=== PATIENT | female | born 1980 | race Caucasian/White ===

== ENCOUNTER 2023-04-28 16:07 | Outpatient (REF) | payer MEDICAID, SELFPAY ==
[2023-04-28 18:24] LABS: TSH reflex Free T4 3.52 uIU/mL (0.32-4.0)
== END 2023-04-28 16:08 | disposition home or self-care (01) ==
LOC: HO.CHCLDS 16:07
PROVIDERS: Visit Provider Internal Medicine
DX: R79.89 Other specified abnormal findings of blood chemistry (principal)
CPT/HCPCS: 36415; 82306; 84443

== ENCOUNTER 2023-11-10 14:06 | Outpatient (REF) | payer MEDICAID, SELFPAY ==
[2023-11-10 14:40] LABS: MANUAL DIFF FLAG NO
[2023-11-10 14:50] LABS: Basophils Absolute Auto 0.1 X10*3/uL (0.0-0.2); Eosinophils Absolute Auto 0.1 X10*3/uL (0.0-0.4); Hemoglobin 8.5 g/dl (12.0-16.0); Imm Gran Abs Auto 0.09 X10*3/uL (0.00-0.03); Lymphocytes Absolute Auto 2.3 X10*3/uL (1.2-4.9); Lymphocytes Percent Auto 26.1 % (20-40); Mean Corpuscular HGB Conc 30.4 g/dl (31.0-35.0); Mean Corpuscular Hemoglobin 24.1 pg (27.0-33.0); Mean Corpuscular Volume 79.5 fL (80.0-98.0); Mean Platelet Volume 11.3 fL (9.4-12.3); Monocytes Absolute Auto 0.7 X10*3/uL (0.1-1.2); Monocytes Percent Auto 7.6 % (2-11); Neutrophils Absolute Auto 5.6 x10*3/uL (2.0-8.3); Neutrophils Percent Auto 63.3 % (45-73); Platelet Count 312 X10*3/uL (160-400); Red Blood Count 3.52 X10*6/uL (4.20-5.50); Red Cell Distribution Width 18.1 % (11.0-16.0); White Blood Count 8.9 X10*3/uL (4.8-10.8)
[2023-11-10 15:43] LABS: Folate 14.2 ng/mL (> or = 4.0); Vitamin B12 888 pg/mL (200-900)
[2023-11-28 16:32] LABS: Vitamin B1 92
== END 2023-11-10 14:07 | disposition home or self-care (01) ==
LOC: HO.CHCLDS 14:06
PROVIDERS: Visit Provider Internal Medicine
DX: R14.0 Abdominal distension (gaseous) (principal); N92.1 Excessive and frequent menstruation with irregular cycle
CPT/HCPCS: 36415; 82607; 82746; 84425; 84439; 84443; 85025

== ENCOUNTER 2023-11-24 12:40 | Outpatient (REF) | payer MEDICAID, SELFPAY ==
--- NOTE | ~2023-11-24 | US_ITS ---
EXAMINATION: US PELVIS CLINICAL INFORMATION: Heavy menstrual bleeding. COMPARISON: None available. TECHNIQUE: Ultrasound of the pelvis is performed using both transabdominal and transvaginal transducers along with Doppler. Transvaginal imaging is performed due to inadequate visualization transabdominally. FINDINGS: UTERUS: The uterus is anteverted and quite enlarged, measuring 17.0 x 10.6 x 14.8 cm for a volume of 1369 mL. The endometrium could not be visualized. A huge fibroid is present centrally measuring 12.8 x 9.9 x 14.0 cm. A smaller mural fibroid is noted in a subserosal location measuring 2.1 x 0.7 x 1.2 cm. ADNEXA: Both ovaries are visualized. There is normal color flow to the adnexa. There is no ovarian torsion. There is no pelvic ascites or fluid collection. Right ovary measures 3.4 x 1.8 x 3.2 cm for a volume of 10.2 mL. Left ovary measures 3.5 x 2.1 x 2.7 cm for a volume of 10.4 mL. US/US pelvic complete IMPRESSION: Enlarged uterus with a huge central mass measuring 14 cm in greatest dimension. Likely diagnosis is a uterine fibroid. Electronically signed by: Derek Mao MD 11/30/2023 05:05 PM EDT
== END 2023-11-24 12:41 | disposition home or self-care (01) ==
LOC: HO.US 12:40
PROVIDERS: PCP Internal Medicine; Visit Provider Internal Medicine
DX: N92.1 Excessive and frequent menstruation with irregular cycle (principal)
CPT/HCPCS: 76856

== ENCOUNTER 2024-03-06 13:35 | Outpatient (REF) | payer MEDICAID, SELFPAY ==
--- NOTE | ~2024-03-06 | US_ITS ---
CLINICAL HISTORY: arm pain, tendernes, redness LT AC fossa x 2 wks s p IV for MRI Venous duplex ultrasound left upper extremity Comparison: None Findings: Accessible deep venous segments are fully compressible with normal Doppler color flow and spectral tracings. IMPRESSION: 1. Negative for left upper extremity deep vein thrombosis. This document has been electronically signed by: Bari Gaviria MD on 03/06/2024 15:03:37
== END 2024-03-06 13:36 | disposition home or self-care (01) ==
LOC: HO.US 13:35
PROVIDERS: PCP Internal Medicine; Visit Provider Emergency Medicine
DX: M79.602 Pain in left arm (principal)
CPT/HCPCS: 93971

== ENCOUNTER → 2024-03-06 14:11 | Outpatient (BNV) | payer MEDICAID, SELFPAY | PROVIDERS: PCP Internal Medicine; Visit Provider Nuclear Medicine | DX: M79.602 Pain in left arm (principal) | CPT/HCPCS: 93971 ==

== ENCOUNTER 2024-05-31 11:17 | Outpatient (REF) | payer MEDICAID, SELFPAY ==
[2024-05-31 14:05] LABS: MANUAL DIFF FLAG NO
[2024-05-31 14:16] LABS: Basophils Absolute Auto 0.1 X10*3/uL (0.0-0.2); Basophils Percent Auto 1.3 % (0-2); Eosinophils Percent Auto 0.7 % (0-4); Hematocrit 40.3 % (37.0-47.0); Hemoglobin 12.9 g/dl (12.0-16.0); Imm Gran Abs Auto 0.02 X10*3/uL (0.00-0.03); Imm Gran Pct Auto 0.3 % (0.0-0.4); Lymphocytes Absolute Auto 1.8 X10*3/uL (1.2-4.9); Lymphocytes Percent Auto 29.4 % (20-40); Mean Corpuscular Hemoglobin 29.6 pg (27.0-33.0); Mean Corpuscular Volume 92.4 fL (80.0-98.0); Mean Platelet Volume 11.3 fL (9.4-12.3); Monocytes Absolute Auto 0.4 X10*3/uL (0.1-1.2); Monocytes Percent Auto 6.7 % (2-11); Neutrophils Absolute Auto 3.7 x10*3/uL (2.0-8.3); Neutrophils Percent Auto 61.6 % (45-73); Platelet Count 324 X10*3/uL (160-400); Red Blood Count 4.36 X10*6/uL (4.20-5.50); Red Cell Distribution Width 14.1 % (11.0-16.0)
[2024-05-31 14:28] LABS: Anion Gap 11 (12-20); Blood Urea Nitrogen 16 mg/dL (9-16); C Reactive Protein < 0.10 mg/dL (< or = 0.50); Calcium 9.8 mg/dL (8.4-10.2); Carbon Dioxide 26 mmol/L (22-29); Chloride 107 mmol/L (96-108); Estimated Glomerular Filt Rate > 60; Glucose Random 106 mg/dL (60-115); Sodium 140 mmol/L (135-145)
[2024-05-31 14:47] LABS: Ferritin 16 ng/mL (10-250); TSH reflex Free T4 17.92 uIU/mL (0.32-4.0)
[2024-05-31 15:41] LABS: Free T4 (Free Thyroxine) 0.79 ng/dL (0.71-1.85)
[2024-06-06 18:24] LABS: Thyroid Stimulating Immunoglob <89 % baseline (<140)
== END 2024-05-31 11:18 | disposition home or self-care (01) ==
LOC: HO.CHCLDS 11:17
PROVIDERS: Visit Provider Internal Medicine
DX: D50.9 Iron deficiency anemia, unspecified (principal); R79.89 Other specified abnormal findings of blood chemistry
CPT/HCPCS: 36415; 80048; 82728; 84439; 84443; 84445; 85025; 86140

== ENCOUNTER 2024-11-19 12:37 | Outpatient (REF) | payer MEDICAID, SELFPAY ==
--- OUTSIDE RECORDS SUMMARY | 2024-11-19 11:15 | XMS_ITS | Encounter Summary ---
Author Organization [employer] Address [address] [place] [phone] Care Team Providers Care Cardiology Tech Name Role Phone Mabel Alfred MD Primary Care Provider [phone] Reason for Referral * Consultation (Routine) - Authorized Specialty Diagnoses / Procedures Referred By Jaleesa abraham Referred To Contact Vascular Surgery Diagnoses Varicose veins of ankle Mabel Alfred MD [address] [place] [address] Phone: tel: fax: [facility] [address] [facility] [address] [place] [address] Phone: tel: fax: Referral ID Status Reason Start Date Expiration Date Visits Requested Visits Authorized [id number] Authorized Specialty Services Required 11/19/2024 11/19/2025 1 1 Encounter Details Date Type Department Care Team (Latest Contact Info) Description 11/19/2024 11:15 AM EDT Office Visit [facility] [address] [place], [place] [phone] Mabel Alfred MD [address] [place] [phone] Elevated TSH (Primary Dx); Edema, lower extremity; Microcytic anemia; Varicose veins of ankle; Intramural uterine fibroid; Weight loss, unintentional Social History Tobacco Use Types Packs/Day Years Used Date Smoking Tobacco: Never Passive Smoke Exposure: Never Smokeless Tobacco: Never Alcohol Use Standard Drinks/Week Comments Never 0 (1 standard drink = 0.6 oz pur e alcohol) Depression Answer Date Recorded Patient Health Questionnaire-9 Score 7 05/31/2024 Patient Health Questionnaire-9 Score 7 05/31/2024 Last PHQ-9: Questionnaire Data Not on file 0 05/31/2024 Housing Stability Answer Date Recorded What is your housing situation today? I have rafael mcduffie 05/31/[address] you li ve. Do you have problems with any of the following? No or not working smoke detectors 05/31/2024 Food Insecurity Answer Date Recorded Within the past 12 months, y ou worried that your food would run out before you got money to buy more: Never True 05/31/2024 Within the past 12 months,th e food you bought just didn't last and you didn't have enough money to get more: Never True Transportation Answer Date Recorded In the past 12 months, has l ack of transportation kept you from medical appts, meetings, work or from getting things needed for daily living? No 05/31/2024 Utilities Answer Date Recorded In the past 12 months, has t he electric, gas, oil or water company threatened to shut off services in your home? No 05/31/2024 Depression Answer Date Recorded Patient Health Questionnaire-2 Score 0 05/31/2024 Internet Access Answer Date Recorded Internet Access Q1 Yes 05/31/2024 Internet Access Q2 Not on file 05/31/2024 Comments Unknown Sex and Gender Information Value Date Recorded Sex Assigned at Female 01/04/2022 10:24 AM EDT Legal Sex Female 10:24 AM EDT Gender Identity Female 01/04/2022 10:24 AM EDT Sexual Orientation Choose not to disclose 2021 10:24 AM EDT documented as of this encounter Last Filed Vital Signs Vital Sign Reading Time Taken Comments Blood Pressure 125/79 11/19/2024 11:28 AM EDT Pulse 73 11/19/2024 11:28 AM EDT Temperature 36.6 C (97.9 F) 11/19/2024 11:28 AM EDT Respiratory Rate 20 11/19/2024 11:28 AM EDT Oxygen Saturation 99% 11/19/2024 11:28 AM EDT Inhaled Oxygen Concentration - - Weight 50.3 kg (111 lb) 11/19/2024 11:28 AM EDT Height 154.9 cm (5' 1 ) 11/19/2024 11:28 AM EDT Body Mass Index 20.97 11/19/2024 11:28 AM EDT documented in this encounter Progress Notes * Mabel Alfred MD - 11/19/2024 11:15 AM EDT DEZ Rey is a 44 y.o. female who presents for No chief complaint on file.. HPI Note from triage reviewed: Triage call Pt reports bilateral upper and lower extremity pain. Pt reports the veins are painful to touch and there are spider like veins seen now under the skin. Pt reports this all started whenPt became more active for a few days, developed some edema of lower extremities and then began to have pain along the veins. Pt reports when the edema resolved the spider veins were seen. Pt denies redness, swelling or painful lump along veins. Pt is wondering if the fibroid in the uterus could be causing this problem. Pt does have an apt with [facility] [facility] in December. Pt has reduced activity and feels better when legs are up while sitting during the day. Pt is also asking if thyroid lab ordered in may is still active order. Pt is advised the TSH lab is still active and Pt will come in todo that in a day or two. No available apts for [facility] in [facility] and Pt would like to see PCP. Pt is advised creative services writer will forward this request to [facility] team nurses to obtain an apt. Pt is advised if any worsening of symptoms go to closest ED for evaluation and Pt agrees. Pt agrees with this disposition and portia n. Insurance is verified as active through November. Was having edema of the lower limbs about a month ago. Now c/o pain of b/l feet since last week. The pain is intermittent, exacerbated by walking and worse at nightime. Never had similar symptoms in the past. Pt is also c/o b/l intermittent wrist pain and arm pain Mrs. Sharon Rey is concerned about having a vasculitis and would like to get a workup done for that. Denies any fever or joint pains. Problem List[1] Allergies[2] Medications Ordered Prior to Encounter[3] Review of Systems Constitutional: Negative for appetite change, chills and diaphoresis. OBJECTIVE Vitals: 11/19/24 1128 BP: 125/79 BP Location: Left arm Patient Position: Sitting BP Cuff Size: Adult Pulse: 73 Resp: 20 Temp: 97.9 ??F (36.6 ??C) TempSrc: Oral SpO2: 99% Weight: 111 lb (50.3 kg) Height: 5' 1 (1.549 m) Physical Exam Constitutional: General: She is not in acute distress. Appearance: Normal appearance. She is not ill-appearing, toxic-appearing or diaphoretic. Cardiovascular: Rate and Rhythm: Normal rate. Comments: Mildly dilated varicose veins of the lower limbs. Pulmonary: Effort: Pulmonary effort is normal. Musculoskeletal: Right lower le+ Edema present. Left lower le+ Edema present. Neurological: Mental Status: She is alert. Assessment/Plan Assessment/Plan Diagnoses and all orders for this visit: Elevated TSH - CBC auto differential; Future - Comprehensive Metabolic Panel; Future - Lipid Panel, Standard; Future - TSH with Reflex to Free T4; Future - JAMES Screen,IFA, with Reflex to Titer and Pattern; Future - Sed Rate by Modified Westergren; Future - C-reactive Protein; Future Edema, lower extremity Comments: Possible venous insufficiency Leg elevation Compression stockings Orders: - CBC auto differential; Future - Comprehensive Metabolic Panel; Future - Lipid Panel, Standard; Future - TSH with Reflex to Free T4; Future - JAMES Screen,IFA, with Reflex to Titer and Pattern; Future - Sed Rate by Modified Westergren; Future - C-reactive Protein; Future Microcytic anemia Comments: Labs ordered. Patient will be contacted with results. Iron supplement refilled. Orders: - Ferritin; Future Varicose veins of ankle - Referral to Vascular Surgery; Future Intramural uterine fibroid Comments: Has a scheduled appointment with gynecology in 2 to 3 weeks. Orders: - ferrous sulfate (Fe Tabs) 325 (65 Fe) MG EC tablet; Take 1 tablet (325 mg) by mouth with breakfast. Do not crush, chew, or split. Weight loss, unintentional Patient should increase calorie dense food in her diet. [1] Patient Active Problem List Diagnosis Brain concussion Gastritis Acute pain of right knee Intramural uterine fibroid [2] Allergies Allergen Reactions Omeprazole Other reaction(s): Hives, Trouble Breathing Sucralfate Other reaction(s): Hives, Trouble Breathing Latex Other reaction(s): Hives / Skin Rash [3] Current Outpatient Medications on File Prior to Visit Medication Sig Dispense Refill Cholecalciferol (Vitamin D3) 1000 units capsule Take 25 mcg by mouth. Diclofenac Sodium 1 % gel APPLY TOPICALLY IN THE MORNING, AT NOON, IN THE EVENING, AND AT BEDTIME NEEDED FOR PAIN 200 g 1 ferrous sulfate (Fe Tabs) 325 (65 Fe) MG EC tablet Take 1 tablet (325 mg) by mouth with breakfast. Do not crush, chew, or split. 30 tablet 11 levothyroxine (Synthroid) 50 MCG tablet Take 1 tablet (50 mcg) by mouth before breakfast. 30 [id number] No current facility-administered medications on file prior to visit. documented in this encounter Plan of Treatment Scheduled Orders Name Type Priority Associated Diagnoses Orde r Schedule JAMES Screen,IFA, with Reflex to Titer and Pattern Lab Routine Elevated TSH Edema, lower extremity Expected: 11/19/2024 (Approximate), Expires: 11/19/2025 Scheduled Referrals Name Type Priority Associated Diagnoses Orde r Schedule Referral to Vascular Surgery Outpatient Referral Routine Varicose veins of ankle Expected: 11/19/2024 (Approximate), Expires: 11/19/2025 documented as of this encounter Procedures Procedure Name Priority Date/Time Associated Diagnosis Comments CBC WITH AUTO DIFFERENTIAL Routine 11/19/2024 12:39 PM EDT Elevated TSH Edema, lower extremity SED RATE BY MODIFIED WESTERGREN Routine 11/19/2024 12:39 PM EDT Elevated TSH Edema, lower extremity TSH W/REFLEX TO FT4 Routine 11/19/2024 1 2:35 PM EDT Elevated TSH Edema, lower extremity C-REACTIVE PROTEIN Routine 11/19/2024 12 :35 PM EDT Elevated TSH Edema, lower extremity FERRITIN Routine 11/19/2024 12:35 PM EDT Microcytic anemia LIPID PANEL, STANDARD Routine 11/19/2024 12:35 PM EDT Elevated TSH Edema, lower extremity COMPREHENSIVE METABOLIC PANEL Routine 11/19/2024 12:35 PM EDT Elevated TSH Edema, lower extremity documented in this encounter Results * Sed Rate by Modified Jaelren (11/19/2024 12:39 PM EDT) Pathologist [facility] Erythrocyte Sedimentation Rate 6 0 - 20 MM/HR [facility] Comment:Patients with polycy themia and many hemoglobin abnormalitiesmay have depressed sed rates whereas patients with anemiamay have elevated sed rates. Blood Venous blood specimen / Unknown 11/19/2024 12:39 PM EDT 11/19/2024 2:00 PM EDT us Mabel Alfred MD LAB BLOOD ORDERABLES Final Result [facility] [address] [place] [phone] * (ABNORMAL) CBC auto differential (11/19/2024 12:39 PM EDT) Pathologist [facility] White Blood Count 4.7(L) 4.8 - 10.8 X10*3/uL [facility] Red Blood Count 4.31 4.20 - 5.50 X10*6/uL [facility] Hemoglobin 12.7 12.0 - 16.0 g/dl [facility] Hematocrit 39.1 37.0 - 47.0 % [facility] Mean Corpuscular Volume 90.7 80.0 - 98.0 fL [facility] Mean Corpuscular Hemoglobin 29.5 27.0 - 33.0 pg [facility] Mean Corpuscular HGB Conc 32.5 31.0 - 35.0 g/dl [facility] Red Cell Distribution Width 12.8 11.0 - 16.0 % [facility] Platelet Count 261 160 - 400 X10*3/uL [facility] Mean Platelet Volume 11.5 9.4 - 12.3 fL [facility] Neutrophils Percent Auto 53.1 45 - 73 % [facility] Imm Gran Pct Auto 0.2 0.0 - 0.4 % [facility] Lymphocytes Percent Auto 35.4 20 - 40 % [facility] Monocytes Percent Auto 8.1 2 - 11 % [facility] Eosinophils Percent Auto 1.7 0 - 4 % [facility] Basophils Percent Auto 1.5 0 - 2 % [facility] NRBC Pct Auto 0.0 0.0 - 0.2 /100WBC [facility] Neutrophils Absolute Auto 2.5 2.0 - 8.3 x10*3/uL [facility] Imm Gran Abs Auto 0.01 0.00 - 0.03 X10*3/uL [facility] Lymphocytes Absolute Auto 1.7 1.2 - 4.9 X10*3/uL [facility] Monocytes Absolute Auto 0.4 0.1 - 1.2 X10*3/uL [facility] Eosinophils Absolute Auto 0.1 0.0 - 0.4 X10*3/uL [facility] Basophils Absolute Auto 0.1 0.0 - 0.2 X10*3/uL [facility] NRBC Abs Auto 0.000 0.0 - 0.012 X10*3/uL [facility] Blood Venous blood specimen / Unknown 11/19/2024 12:39 PM EDT 11/19/2024 2:00 PM EDT us Mabel Alfred MD LAB BLOOD ORDERABLES Final Result [facility] [address] [place], [place] [phone] * Ferritin (11/19/2024 12:35 PM EDT) Ferritin 25 10 - 250 ng/mL [facility] Blood Venous blood specimen / Unknown 11/19/2024 12:35 PM EDT 11/19/2024 2:00 PM EDT us Mabel Alfred MD LAB BLOOD ORDERABLES Final Result Performing Organization Address [facility] Co ak Phone Number [facility] [address] [place] [phone] * C-reactive Protein (11/19/2024 12:35 PM EDT) C Reactive Protein 0.14 < or = 0.50 mg/dL [facility] Blood Venous blood specimen / Unknown 11/19/2024 12:35 PM EDT 11/19/2024 2:00 PM EDT us Mabel Alfred MD LAB BLOOD ORDERABLES Final Result Performing Organization Address [facility] Number [facility] [address] [place] [phone] * (ABNORMAL) TSH with Reflex to Free T4 (11/19/2024 12:35 PM EDT) TSH reflex Free T4 7.36(H) 0.32 - 4.0 uIU/mL [facility] Blood Venous blood specimen / Unknown 11/19/2024 12:35 PM EDT 11/19/2024 2:00 PM EDT us Mabel Alfred MD LAB BLOOD ORDERABLES Final Result Performing Organization Address [facility] Co ak Phone Number [facility] [address] [place] [phone] * (ABNORMAL) Lipid Panel, Standard (11/19/2024 12:35 PM EDT) Triglycerides 56 <150 mg/dL [facility] Comment:Desirable Triglyceri de: less than 150 mg/dLBorderline High Triglyceride 150-199 mg/dLHigh Triglyceride: 200-499 mg/dLVery High Triglyceride: greater than or equal to 5OO mg/dL Cholesterol 178 <200 mg/dL [facility] Comment:Desirable Cholestero l: less than 200 mg/dLBorderline High Cholesterol: 200-239 mg/dLHigh Cholesterol: greater than 239 mg/dL LDL Cholesterol Calculated 102(H) <100 mg/dL [facility] Comment:Desirable LDL: less than 100 mg/dLNear Optimal/Above Optimal LDL: 110- 129 mg/dLBorderline High LDL: 130-159 mg/dLHigh LDL: 160-189 mg/dLVery High LDL: greater than or equal to 190 mg/dL HDL Cholesterol 65 >40 mg/dL [facility] Comment:Desirable HDL: great er than 40 mg/dL Note: This HDL assay may give artificially low results in patients with liver disease. Blood Venous blood specimen / Unknown 11/19/2024 12:35 PM EDT 11/19/2024 2:00 PM EDT us Mabel Alfred MD LAB BLOOD ORDERABLES Final Result [facility] [address] [place] [phone] * (ABNORMAL) Comprehensive Metabolic Panel (11/19/2024 12:35 PM EDT) Sodium 140 135 - 145 mmol/L [facility] Potassium 4.0 3.3 - 5.1 mmol/L [facility] Chloride 106 96 - 108 mmol/L [facility] Carbon Dioxide 26 22 - 29 mmol/L [facility] Anion Gap 12 12 - 20 [facility] Urea Nitrogen (BUN) 4(L) 9 - 16 mg/dL [facility] Creatinine, Serum 0.59 0.5 - 1.4 mg/dL [facility] Estimated Glomerular Filt Rate >60 [facility] Comment:Chronic Kidney Disea se: Estimated GFR < 60 mL/min/1.57r8Gjjged Kidney Disease: Estimated GFR < 15 mL/min/1.73m2 Glucose 101 60 - 115 mg/dL [facility] Calcium 9.7 8.4 - 10.2 mg/dL [facility] Bilirubin, Total 0.2 0.0 - 1.0 mg/dL [facility] Aspartate Amino Transferase 28 5 - 31 U/L [facility] Alanine Aminotransferase 15 0 - 31 U/L [facility] Total Protein 6.9 6.5 - 8.0 g/dL [facility] Albumin Level 4.7 3.5 - 5.0 g/dL [facility] Alkaline Phosphatase 55 39 - 117 U/L [facility] Blood Venous blood specimen / Unknown 11/19/2024 12:35 PM EDT 11/19/2024 2:00 PM EDT Mabel Alfred MD LAB BLOOD ORDERABLES Final Result [facility] [address] [place] [phone] documented in this encounter Visit Diagnoses Diagnosis Elevated TSH- Primary Other abnormal blood chemistry Edema, lower extremity Microcytic anemia Unspecified iron deficiency anemia Varicose veins of ankle Intramural uterine fibroid Weight loss, unintentional Loss of weight documented in this encounter Additional Health Concerns Assessment Noted Time PHQ-9 Depression Total Score: 7 06/01/19 25 11:07 AM EDT documented as of this encounter Care Teams Cardiology Tech Relationship Specialty Start Date End Date Mabel Alfred MD [address] [place] [phone] PCP - General Internal Medicine 12/01/20 documented as of this encounter
[2024-11-19 14:08] LABS: MANUAL DIFF FLAG NO
[2024-11-19 14:19] LABS: Hematocrit 39.1 % (37.0-47.0); Hemoglobin 12.7 g/dl (12.0-16.0); Imm Gran Abs Auto 0.01 X10*3/uL (0.00-0.03); Imm Gran Pct Auto 0.2 % (0.0-0.4); Lymphocytes Absolute Auto 1.7 X10*3/uL (1.2-4.9); Mean Corpuscular HGB Conc 32.5 g/dl (31.0-35.0); Mean Corpuscular Hemoglobin 29.5 pg (27.0-33.0); Mean Corpuscular Volume 90.7 fL (80.0-98.0); NRBC Abs Auto 0.000 X10*3/uL (0.0-0.012); NRBC Pct Auto 0.0 /100WBC (0.0-0.2); Platelet Count 261 X10*3/uL (160-400); Red Blood Count 4.31 X10*6/uL (4.20-5.50); White Blood Count 4.7 X10*3/uL (4.8-10.8)
[2024-11-19 14:35] LABS: Alanine Aminotransferase 15 U/L (0-31); Albumin Level 4.7 g/dL (3.5-5.0); Alkaline Phosphatase 55 U/L (39-117); Anion Gap 12 (12-20); Aspartate Amino Transferase 28 U/L (5-31); Blood Urea Nitrogen 4 mg/dL (9-16); Calcium 9.7 mg/dL (8.4-10.2); Carbon Dioxide 26 mmol/L (22-29); Chloride 106 mmol/L (96-108); Cholesterol 178 mg/dL (<200); Estimated Glomerular Filt Rate > 60; HDL Cholesterol 65 mg/dL (>40); Potassium 4.0 mmol/L (3.3-5.1); Sodium 140 mmol/L (135-145); Total Protein 6.9 g/dL (6.5-8.0); Triglycerides 56 mg/dL (<150)
[2024-11-19 14:50] LABS: Ferritin 25 ng/mL (10-250)
[2024-11-19 15:24] LABS: Free T4 (Free Thyroxine) 1.01 ng/dL (0.71-1.85)
--- OUTSIDE RECORDS SUMMARY | 2024-11-19 17:19 | XMS_ITS | Encounter Summary ---
Author Organization [employer] Address [address] [place] [phone] Care Team Providers Care Carpet Yarn Winder Operator Name Role Phone Mabel Alfred MD Primary Care Provider [phone] Reason for Referral * Imaging (Routine) - Closed Specialty Diagnoses / Procedures Referred By Contac t Referred To Contact Radiology Diagnoses Menorrhagia with irregular cycle Procedures US PELVIC AND TRANSVAGINAL Mabel Alfred MD [address] [place] [address] Phone: tel: fax: [address] Phone: tel: fax: Referral ID Status Reason Start Date Expiration Date Visits Re quested Visits Authorized [id number] Closed 11/16/2023 11/15/2024 1 1 Encounter Details Date Type Department Care Team (Late st Contact Info) Description 11/16/2023 Orders Only [facility] P[facility]S [address] [place] [address] Mabel Alfred MD [address] [place] [address] Menorrhagia with irregular cycle (Primary Dx) Social History Tobacco Use Types Packs/Day Years Used Date Smoking Tobacco: Never Passive Smoke Exposure: Never Smokeless Tobacco: Never Alcohol Use Standard Drinks/Week Comments Never 0 (1 standard drink = 0.6 oz pur e alcohol) Comments Unknown Sex and Gender Information Value Date Recorded Sex Assigned at Female 01/04/2022 10:24 AM EDT Legal Sex Female 10:24 AM EDT Gender Identity Female 01/04/2022 10:24 AM EDT Sexual Orientation Choose not to disclose 2021 10:24 AM EDT documented as of this encounter Plan of Treatment Scheduled Orders Name Type Priority Associated Diagnoses Orde r Schedule US PELVIC AND TRANSVAGINAL Imaging Routine Menorrhagia with irregular cycle Expected: 11/16/2023, Expires: 11/15/2024 documented as of this encounter Visit Diagnoses Diagnosis Menorrhagia with irregular cycle- Primary documented in this encounter Care Teams Carpet Yarn Winder Operator Relationship Specialty Start Date End Date Mabel Alfred MD [address] [place] [address] PCP - General Internal Medicine 12/01/20 documented as of this encounter
--- OUTSIDE RECORDS SUMMARY | 2024-11-19 17:19 | XMS_ITS | Encounter Summary ---
Author Organization [employer] Address [address] [place] [address] Care Team Providers Care Product Manager E Commerce Name Role Phone Mabel Alfred MD Primary Care Provider [phone] Reason for Referral * Consultation (Routine) - Closed Specialty Diagnoses / Procedures Referred By Contac t Referred To Contact Neurology Diagnoses Brain concussion, without loss of consciousness, subsequent encounter Mabel Alfred MD [address] [place] [phone] Phone: tel: fax: [facility] [address], [address] [place] [address] Phone: tel: fax: Referral ID Status Reason Start Date Expiration Date V isits Requested Visits Authorized [id number] Closed Specialty Services Required 06/26/2024 06/26/2025 1 1 Encounter Details Date Type Department Care Team (Late st Contact Info) Description 06/26/2024 Orders Only [facility] MED [facility] PEDS [address] [place] [address] Mabel Alfred MD [address] [place] [phone] Brain concussion, without loss of consciousness, subsequent encounter (Primary Dx) Social History Tobacco Use Types [...] of this encounter Plan of Treatment Scheduled Referrals Name Type Priority Associated Diagnoses Orde r Schedule Referral to Neurology Outpatient Referral Routine Brain concussion, without loss of consciousness, subsequent encounter Expected: 06/26/2024 (Approximate), Expires: 06/26/2025 documented as of this encounter Visit Diagnoses Diagnosis Brain concussion, without loss of consciousness, subsequent encounter- Primary documented in this encounter Additional Health Concerns Assessment Noted Time PHQ-9 Depression Total Score: 7 06/01/19 25 11:07 AM EDT documented as of this encounter Care Teams Product Manager E Commerce Relationship Specialty Start Date End Date Mabel Alfred MD [address] [place] [phone] PCP - General Internal Medicine 12/01/20 documented as of this encounter
--- OUTSIDE RECORDS SUMMARY | 2024-11-19 17:19 | XMS_ITS | Encounter Summary ---
Author Organization [employer] Address [address] [place] [address] Care Team Providers Care Operator Supply Name Role Phone Mabel Alfred MD Primary Care Provider [phone] Encounter Details Date Type Department Care Team ([facility] st Contact Info) Description 04/06/2022 Orders Only [facility] [address] [place] [address] Mabel Alfred MD [address] [place] [address] Acute pain of right knee (Primary Dx) Social History Tobacco Use Types [...] not to disclose 2021 10:24 AM EDT COVID-19 Exposure Response Date Recorded In the last 10 days, have yo u been in contact with someone who was confirmed or suspected to have Coronavirus/COVID-19? No / Unsure 04/05/2022 1:47 PM EST documented as of this encounter Plan of Treatment Scheduled Orders Name Type Priority Associated Diagnoses Orde r Schedule XR Knee 1-2 Views Left Imaging Routine Acute pain of right knee Expected: 04/06/2022, Expires: 04/06/2023 XR Knee 3 Views Right Imaging Routine Acute pain of right knee Expected: 04/06/2022, Expires: 04/06/2023 XR Knee 1-2 Views Right Imaging Routine Acute pain of right knee Expected: 04/06/2022, Expires: 04/06/2023 documented as of this encounter Visit Diagnoses Diagnosis Acute pain of right knee- Primary documented in this encounter Care Teams Operator Supply Relationship Specialty Start Date End Date Mabel Alfred MD [address] [place] [phone] PCP - General Internal Medicine 12/01/20 documented as of this encounter
--- OUTSIDE RECORDS SUMMARY | 2024-11-19 17:19 | XMS_ITS | Encounter Summary ---
Author Organization [employer] Address [address] [place] [address] [place] [address] Care Team Providers Care School Director Name Role Phone Mabel Alfred MD Primary Care Provider [phone] Encounter Details Date Type Department Care Team ([facility] st Contact Info) Description 06/01/2024 Orders Only [facility] [address] [place], [place] [phone] Mabel Alfred MD [address] [place] [address] Other specified hypothyroidism (Primary Dx) Social History Tobacco Use Types [...] your housing situation today? I have rafael sing 05/31/[address] you li [...] Type Priority Associated Diagnoses Orde r Schedule TSH W/Reflex to FT4 Lab Routine Other specified hypothyroidism Expected: 06/01/2024 (Approximate), Expires: 06/01/2025 documented as of this encounter Visit Diagnoses Diagnosis Other specified hypothyroidism- Primary documented in this encounter Additional Health Concerns Assessment Noted Time PHQ-9 Depression Total Score: 7 06/01/19 25 11:07 AM EDT documented as of this encounter Care Teams School Director Relationship Specialty Start Date End Date Mabel Alfred MD [address] [place] [phone] PCP - General Internal Medicine 12/01/20 documented as of this encounter
--- OUTSIDE RECORDS SUMMARY | 2024-11-19 17:19 | XMS_ITS | Encounter Summary ---
Author Organization [employer] Address [address] [facility] 7t [place] [address] Care Team Providers Care Cask Maker Name Role Phone Mabel Alfred MD Primary Care Provider [phone] Encounter Details Date Type Department Care Team (Latest Contact Info) Description 11/19/2024 Travel Social History Tobacco Use Types Packs/Day Years [...] is your housing situation today? I have rafaelrosio mcduffie 05/31/[address] you [...] as of this encounter Plan of Treatment Not on file documented as of this encounter Visit Diagnoses Not on filedocumented in this encounter Additional Health Concerns Assessment Noted Time PHQ-9 Depression Total Score: 7 06/01/19 25 11:07 AM EDT documented as of this encounter Care Teams Cask Maker Relationship Specialty Start Date End Date Mabel Alfred MD [address] [place] [phone] PCP - General Internal Medicine 12/01/20 documented as of this encounter
--- OUTSIDE RECORDS SUMMARY | 2024-11-19 17:19 | XMS_ITS | Clinical Summary ---
Author Organization [employer] Address [address] [place] [address] 7 [place] [address] Care Team Providers Care Fish Smoker Name Role Phone Mabel Alfred MD Primary Care Provider [phone] Allergies Active Allergy Reactions Criticality Noted Date Comments Latex 12/01/2020 Other reaction(s): Hives / Skin Rash Omeprazole High 11/12/2020 Other reaction(s): Hives, Trouble Breathing Sucralfate High 12/01/2020 Other reaction(s): Hives, Trouble Breathing Medications Cholecalciferol (Vitamin D3) 1000 units capsule Take 25 mcg by mouth. 04/28/19 24 Active Diclofenac Sodium 1 % gelIndications:Ac [place] pain of right knee APPLY TOPICALLY IN THE MORNING, AT NOON, IN THE EVENING, AND AT BEDTIME NEEDED FOR PAIN 200 g 1 06/05/19 25 Active ferrous sulfate (Fe Tabs) 325 (65 Fe) MG EC tabletIndications :Intramural uterine fibroid Take 1 tablet (325 mg) by mouth with breakfast. Do not crush, chew, or split. 30 tablet 11/20/19 25 2025 Active levothyroxine (Synthroid) 75 MCG tabletIndications :Other specified hypothyroidism Take 1 tablet (75 mcg) by mouth before breakfast. 30 tablet 11/20/19 25 2025 Active ferrous sulfate (Fe Tabs) 325 (65 Fe) MG EC tabletIndications :Intramural uterine fibroid Take 1 tablet (325 mg) by mouth with breakfast. Do not crush, chew, or split. 30 tablet 12/01/19 24 2024 Discontinued(R eorder (will not trigger notification to Pharmacy)) levothyroxine (Synthroid) 50 MCG tabletIndications :Other specified hypothyroidism Take 1 tablet (50 mcg) by mouth before breakfast. 30 tablet 11 06/02/19 25 2024 Discontinued(D ose adjustment) Active Problems Problem Noted Date Diagnosed Date Intramural uterine fibroid 05/31/2024 Gastritis 04/05/2022 Acute pain of right knee 04/05/2022 Assessment & Plan (04/05/2022 2:32 PM EST): Normal ROM, + crepitus and apprehension test ddx patellofemoral, will send to PT, X rays and topical diclofenac. Likely some bursitis component on hip examination. RTC with pcp prn Brain concussion 08/31/2018 Encounters Date Type Department Care Team Description 11/19/2024 11:15 AM EDT Office Visit [facility] [address] [place] [address] Mabel Alfred MD Elevated TSH (Primary Dx); Edema, lower extremity; Microcytic anemia; Varicose veins of ankle; Intramural uterine fibroid; Weight loss, unintentional 11/19/2024 Orders Only [facility] [address] [place] [address] Mabel Alfred MD Other specified hypothyroidism (Primary Dx) 11/19/2024 Travel 11/18/2024 Travel 11/16/2024 Telephone [facility] [address] [place] [address] Mabel Alfred MD Chart Prep 11/14/2024 Telephone [facility] [address] [place] [address] Mabel Alfred MD Nurse Triage from Last 3 Months Immunizations Immunization Administration Dates Next Due Tdap 12/15/2011 Social History Tobacco Use Types Packs/Day Years Used Date Smoking Tobacco: Never Passive Smoke Exposure: Never Smokeless Tobacco: Never Tobacco Cessation:Counseling Given: Not Answered Alcohol Use Standard Drinks/Week Comments Never 0 [...] not to disclose 2021 10:24 AM EDT Last Filed Vital Signs Vital Sign Reading [...] Mass Index 20.97 11/19/2024 11:28 AM EDT Plan of Treatment Health Maintenance Due Date Last Done Comments Dental X-Ray: Full Mouth 1982 HIV Screening 1982 Family Planning (PISQ) 1997 HPV Vaccines (1 - 3-dose series) 1997 Hepatitis C Screening 2000 Hepatitis B Vaccines (1 of 3 - 19+ 3-dose series) 2001 Pap Smear 10/27/2003 Cervical Cancer Screening 2012 HPV/Cotest 2012 DTaP/Tdap/Td Vaccines (2 - T d or Tdap) 12/14/2021 12/15/2011 Mammogram 2022 Dental Oral Exam 12/16/2022 06/15/2022 Dental X-Ray: Bitewings 06/17/2023 06/15/2022 Dental Prophylaxis 03/03/2024 09/01/2023, 06/15/2022 COVID-19 Vaccine (1 - 2023-2 5 season) 2024 Influenza Vaccine (#1) 2024 Disability Screening 05/30/2025 05/30/2024 Alcohol/Substance Use Screening 05/31/2025 05/31/2024 Depression Screening 05/31/2025 05/31/2024, 05/31/2024 SDOH Screening 05/31/2025 05/31/2024 Tobacco Screening 05/31/2025 05/31/2024 Zoster Vaccines (1 of 2) 2032 RSV Patients and Patients Aged 60 years or older (1 - 1-dose 75+ series) 2057 HIB Vaccines Aged Out No longer eligi ble based on patient's age to complete this topic Hepatitis A Vaccines Aged Out No long er eligible based on patient's age to complete this topic IPV Vaccines Aged Out No longer eligi ble based on patient's age to complete this topic Meningococcal B Vaccine Aged Out No l onger eligible based on patient's age to complete this topic Meningococcal Vaccine Aged Out No luis sincere eligible based on patient's age to complete this topic Pneumococcal Vaccine: Pediatrics (0 to 5 Years) and At-Risk Patients (6 to 49) Years Aged Out No longer eligible b ased on patient's age to complete this topic RSV under 20 months Aged Out No longe r eligible based on patient's age to complete this topic Rotavirus Vaccines Aged Out No longer eligible based on patient's age to complete this topic Procedures Procedure Name Priority Date/Time Associated Diagnosis Comments SED RATE BY MODIFIED HUSAM Routine 11/19/2024 12:39 PM EDT Elevated TSH Edema, lower extremity CBC WITH AUTO DIFFERENTIAL Routine 11/19/2024 12:39 PM EDT Elevated TSH Edema, lower extremity T4, FREE Routine 11/19/2024 12:35 PM EDT Other specified hypothyroidism FERRITIN Routine 11/19/2024 12:35 PM EDT Microcytic anemia C-REACTIVE PROTEIN Routine 11/19/2024 12 :35 PM EDT Elevated TSH Edema, lower extremity TSH W/REFLEX TO FT4 Routine 11/19/2024 1 2:35 PM EDT Elevated TSH Edema, lower extremity LIPID PANEL, STANDARD Routine 11/19/2024 12:35 PM EDT Elevated TSH Edema, lower extremity COMPREHENSIVE METABOLIC PANEL Routine 11/19/2024 12:35 PM EDT Elevated TSH Edema, lower extremity PROPHYLAXIS - ADULT Routine 09/01/2023 1 1:00 AM EDT BITEWINGS - 4 RADIOGRAPHIC IMAGES Routine 06/15/2022 10:00 AM EDT Encounter for dental examination COMPREHENSIVE ORAL EVALUATION - NEW OR ESTABLISHED PATIENT Routine 06/15/2022 10:00 AM EDT Encounter for dental examination from Last 3 Months or Most Recently Relevant to Health Maintenance Results * (ABNORMAL) CBC auto differential (11/19/2024 12:39 PM EDT) White Blood Count 4.7(L) 4.8 - 10.8 X10*3/uL [facility] Red Blood Count 4.31 4.20 - 5.50 X10*6/uL [facility] Hemoglobin 12.7 12.0 - 16.0 g/dl [facility] Hematocrit 39.1 37.0 - 47.0 % [facility] Mean Corpuscular Volume 90.7 80.0 - 98.0 fL [facility] Mean Corpuscular Hemoglobin 29.5 27.0 - 33.0 pg [facility] Mean Corpuscular HGB Conc 32.5 31.0 - 35.0 g/dl [facility] Red Cell Distribution Width 12.8 11.0 - 16.0 % [facility] Platelet Count 261 160 - 400 X10*3/uL [facility] Mean Platelet Volume 11.5 9.4 - 12.3 fL [facility] Neutrophils Percent Auto 53.1 45 - 73 % [facility] Imm Gran Pct Auto 0.2 0.0 - 0.4 % [facility] Lymphocytes Percent Auto 35.4 20 - 40 % [facility] Monocytes Percent Auto 8.1 2 - 11 % [facility] Eosinophils Percent Auto 1.7 0 - 4 % [facility] Basophils Percent Auto 1.5 0 - 2 % [facility] NRBC Pct Auto 0.0 0.0 - 0.2 /100WBC [facility] Neutrophils Absolute Auto 2.5 2.0 - 8.3 x10*3/uL [facility] Imm Gran Abs Auto 0.01 0.00 - 0.03 X10*3/uL [facility] Lymphocytes Absolute Auto 1.7 1.2 - 4.9 X10*3/uL [facility] Monocytes Absolute Auto 0.4 0.1 - 1.2 X10*3/uL [facility] Eosinophils Absolute Auto 0.1 0.0 - 0.4 X10*3/uL [facility] Basophils Absolute Auto 0.1 0.0 - 0.2 X10*3/uL [facility] NRBC Abs Auto 0.000 0.0 - 0.012 X10*3/uL [facility] Blood Venous blood specimen / Unknown 11/19/2024 12:39 PM EDT 11/19/2024 2:00 PM EDT us Mabel Alfred MD LAB BLOOD ORDERABLES Final Result Performing Organization Address [facility]/ZIP Co de Phone Number [facility] [address] [place] [phone] * Sed Rate by Modified Westergren (11/19/2024 12:39 PM EDT) Erythrocyte Sedimentation Rate 6 0 - 20 MM/HR [facility] Comment:Patients with polycy themia and many hemoglobin abnormalitiesmay have depressed sed rates whereas patients with anemiamay have elevated sed rates. Blood Venous blood specimen / Unknown 11/19/2024 12:39 PM EDT 11/19/2024 2:00 PM EDT us Mabel Alfred MD LAB BLOOD ORDERABLES Final Result Performing Organization Address [facility] Co de Phone Number [facility] [address] [place] [phone] * (ABNORMAL) TSH with Reflex to Free T4 (11/19/2024 12:35 PM EDT) [facility] TSH reflex Free T4 7.36(H) 0.32 - 4.0 uIU/mL [facility] Blood Venous blood specimen / Unknown 11/19/2024 12:35 PM EDT 11/19/2024 2:00 PM EDT us Mabel Alfred MD LAB BLOOD ORDERABLES Final Result Performing Organization Address [facility] Co de Phone Number [facility] [address] [place] [phone] * C-reactive Protein (11/19/2024 12:35 PM EDT) Pathologist [facility] C Reactive Protein 0.14 < or = 0.50 mg/dL [facility] Blood Venous blood specimen / Unknown 11/19/2024 12:35 PM EDT 11/19/2024 2:00 PM EDT Mabel Alfred MD LAB BLOOD ORDERABLES Final Result Performing Organization Address [facility]/ZIP Co de Phone Number [facility] [address] [place] [phone] * T4, Free (11/19/2024 12:35 PM EDT) Free T4 (Free Thyroxine) 1.01 0.71 - 1.85 ng/dL [facility] 11/19/2024 12:3 5 PM EDT 11/19/2024 2:00 PM EDT Mabel Alfred MD LAB BLOOD ORDERABLES Final Result Performing Organization Address [facility] Co va Phone Number [facility] [address] [place] [phone] * Ferritin (11/19/2024 12:35 PM EDT) Pathologist [facility] Ferritin 25 10 - 250 ng/mL [facility] Blood Venous blood specimen / Unknown 11/19/2024 12:35 PM EDT 11/19/2024 2:00 PM EDT Mabel Alfred MD LAB BLOOD ORDERABLES Final Result Performing Organization Address [facility]/ZIP Co de Phone Number [facility] [address] [place] [phone] * (ABNORMAL) Lipid Panel, Standard (11/19/2024 12:35 PM EDT) Triglycerides 56 <150 mg/dL [facility] Comment:Desirable Triglyceri de: less than 150 mg/dLBorderline High Triglyceride 150-199 mg/dLHigh Triglyceride: 200-499 mg/dLVery High Triglyceride: greater than or equal to 5OO mg/dL Cholesterol 178 <200 mg/dL [facility] Comment:Desirable Cholestero l: less than 200 mg/dLBorderline High Cholesterol: 200-239 mg/dLHigh Cholesterol: greater than 239 mg/dL LDL Cholesterol Calculated 102(H) <100 mg/dL [facility] Comment:Desirable LDL: less than 100 mg/dLNear Optimal/Above Optimal LDL: 110- 129 mg/dLBorderline High LDL: 130-159 mg/dLHigh LDL: 160-189 mg/dLVery High LDL: greater than or equal to 190 mg/dL HDL Cholesterol 65 >40 mg/dL [facility] Comment:Desirable HDL: great er than 40 mg/dL Note: This HDL assay may give artificially low results in patients with liver disease. Blood Venous blood specimen / Unknown 11/19/2024 12:35 PM EDT 11/19/2024 2:00 PM EDT Mabel Alfred MD LAB BLOOD ORDERABLES Final Result [facility] [address] [place] [phone] [phone] * (ABNORMAL) Comprehensive Metabolic Panel (11/19/2024 12:35 PM EDT) Sodium 140 135 - 145 mmol/L [facility] Potassium 4.0 3.3 - 5.1 mmol/L [facility] Chloride 106 96 - 108 mmol/L [facility] Carbon Dioxide 26 22 - 29 mmol/L [facility] Anion Gap 12 12 - 20 [facility] Urea Nitrogen (BUN) 4(L) 9 - 16 mg/dL [facility] Creatinine, Serum 0.59 0.5 - 1.4 mg/dL [facility] Estimated Glomerular Filt Rate >60 [facility] Comment:Chronic Kidney Disea se: Estimated GFR < 60 mL/min/[id number] Kidney Disease: Estimated GFR < 15 mL/min/1.73m2 Glucose 101 60 - 115 mg/dL [facility] Calcium 9.7 8.4 - 10.2 mg/dL [facility] Bilirubin, Total 0.2 0.0 - 1.0 mg/dL [facility] Aspartate Amino Transferase 28 5 - 31 U/L [facility] Alanine Aminotransferase 15 0 - 31 U/L [facility] Total Protein 6.9 6.5 - 8.0 g/dL [facility] Albumin Level 4.7 3.5 - 5.0 g/dL [facility] Alkaline Phosphatase 55 39 - 117 U/L [facility] Blood Venous blood specimen / Unknown 11/19/2024 12:35 PM EDT 11/19/2024 2:00 PM EDT us Mabel Alfred MD LAB BLOOD ORDERABLES Final Result [facility] [address] [place] [phone] from Last 3 Months Insurance [facility] C3 DENTAL-[facility] MEDICAID STAND ADULT Care Teams Fish Smoker Relationship Specialty Start Date End Date Mabel Alfred MD [address] [place] [phone] PCP - General Internal Medicine 12/01/20
--- OUTSIDE RECORDS SUMMARY | 2024-11-19 17:19 | XMS_ITS | Encounter Summary ---
Author Organization [employer] Address [address] [facility] 7t [place] [address] Care Team Providers Care Development Team Lead Name Role Phone Mabel Alfred MD Primary Care Provider [phone] Encounter Details Date Type Department Care Team (Latest Contact Info) Description 11/18/2024 Travel Social History Tobacco Use Types Packs/Day [...] documented as of this encounter Care Teams Development Team Lead Relationship Specialty Start Date End Date Mabel Alfred MD [address] [place] [phone] PCP - General Internal Medicine 12/01/20 documented as of this encounter
--- OUTSIDE RECORDS SUMMARY | 2024-11-19 17:19 | XMS_ITS | Encounter Summary ---
Author Organization [employer] Address [address] [address] Care Team Providers Care Despatch Clerk Name Role Phone Mabel Alfred MD Primary Care Provider [phone] Reason for Visit * Reason Onset Date Comments Nurse Triage 11/14/2024 Encounter Details Date Type Department Care Team ([facility] st Contact Info) Description 11/14/2024 Telephone [facility] [address] [place] [address] Mabel Alfred MD [address] [place] [address] Nurse Triage Social History Tobacco Use Types Packs/Day Years [...] AM EDT documented as of this encounter Miscellaneous Notes * Telephone Encounter - Xena Salazar RN - 11/14/2024 3:06 PM EDT Triage call Pt reports bilateral upper and lower extremity pain. Pt reports the veins are painfulto touch and there are spider like veins seen now under the skin. Pt reports this all started when Pt became more active for a few days, developed some edema of lower extremities and then began to have pain along the veins. Pt reports when the edema resolved the spider veins were seen. Pt denies redness, swelling or painful lump along veins. Pt is wondering if the fibroid in the uterus could be causing this problem. Pt does have an apt with [facility] in December. Pt has reduced activity and feels better when legs are up while sitting during the day. Pt is also asking if thyroid lab ordered in may is still active order. Pt is advised the TSH lab is still active and Pt will come in to do that in a day or two. No available apts for Pt in [facility] and Pt would like to see PCP. Pt is advisedwriter will forward this request to [facility] team nurses to obtain an apt. Pt is advised if any worsening of symptoms go to closest ED for evaluation and Pt agrees. Pt agrees with this disposition and plan. Insurance is verified as active through November. Multiple (2) protocols were used on this call. Disposition for Call: See in Office or Video Visit within 3 Days Protocol Used: Arm Pain (Adult) Protocol-Based Disposition: See in Office or Video Visit within 3 Days Video visit not offered Positive Triage Question: * Moderate pain (e.g., interferes with normal activities) and present > 3 days * All higher-acuity triage questions were negative Care Advice Discussed: * Pain Medicines * Pain Medicines - Extra Notes and Warnings * Reasons To Call Back - Severe pain lasts over 2 hours after pain medicine - Moderate pain (such as interferes with normal activities) lasts more than 3 days - Mild pain lasts more than 7 days - Arm swelling occurs - Signs of infection occur (such as spreading redness, warmth, fever) - You become worse * Use a Cold Pack for Pain * Use Heat After 48 Hours for Pain Protocol Used: Leg Pain (Adult) Protocol-Based Disposition: See in Office or Video Visit within 3 Days Video visit not offered Positive Triage Question: * Moderate pain (e.g., interferes with normal activities, limping) and present > 3 days * All higher-acuity triage questions were negative Care Advice Discussed: * Reassurance and Education - Leg Pain * Pain Medicines * Pain Medicines - Extra Notes and Warnings * Reasons To Call Back - Moderate pain (such as limping) lasts more than 3 days - Mild pain lasts more than 7 days - Signs of infection occur (such as spreading redness, warmth, fever) - You become worse * Telephone Encounter - Doris Islas - 11/14/2024 2:22 PM EDT Symptoms: Leg Pain - Not From Injury, Arm Pain - Not From Injury Outcome: Schedule an urgent appointment (within 1 hour) or talk to a nurse or provider soon Reason: Severe pain now The caller accepted this outcome. Contact pt at [phone] documented in this encounter Plan of Treatment Not on file documented as of this encounter Visit Diagnoses Not on filedocumented in this encounter Additional Health Concerns Assessment Noted Time PHQ-9 Depression Total Score: 7 06/01/19 25 11:07 AM EDT documented as of this encounter Care Teams Despatch Clerk Relationship Specialty Start Date End Date Mabel Alfred MD [address] [place] [phone] PCP - General Internal Medicine 12/01/20 documented as of this encounter
--- OUTSIDE RECORDS SUMMARY | 2024-11-19 17:19 | XMS_ITS | Encounter Summary ---
Author Organization [employer] Address [address] [place] [address] Care Team Providers Care Supervisor Assembly Name Role Phone Mabel Alfred MD Primary Care Provider [phone] Encounter Details Date Type Department Care Team (Latest Contact Info) Description 11/12/2020 Abstract [facility] Dental, Provider, DDS Social History Tobacco Use Types Packs/Day Years Used Date Smoking Tobacco: Never Assessed Comments Unknown Sex and Gender Information Value [...] Diagnoses Not on filedocumented in this encounter Care Teams Supervisor Assembly Relationship Specialty Start Date End Date Mabel Alfred MD [address] [place] [phone] PCP - General Internal Medicine 12/01/20 documented as of this encounter
--- OUTSIDE RECORDS SUMMARY | 2024-11-19 17:19 | XMS_ITS | Encounter Summary ---
Author Organization [employer] Address [address] [place] [address] [place] [address] Care Team Providers Care Barometers Calibrator Name Role Phone Mabel Alfred MD Primary Care Provider [phone] Encounter Details Date Type Department Care Team ([facility] st Contact Info) Description 11/19/2024 Orders Only [facility] [address] [place], [place] [phone] Mabel Alfred MD [address] [place] [address] Other specified hypothyroidism (Primary Dx) Social History [...] FT4 Lab Routine Other specified hypothyroidism Expected: 11/19/2024 (Approximate), Expires: 11/19/2025 documented as of this encounter Procedures Procedure Name Priority Date/Time Associated Diagnosis Comments T4, FREE Routine 11/19/2024 12:35 PM EDT Other specified hypothyroidism documented in this encounter Results * T4, Free (11/19/2024 12:35 PM EDT) Free T4 (Free Thyroxine) 1.01 0.71 - 1.85 ng/dL [facility] 11/19/2024 12:3 5 PM EDT 11/19/2024 2:00 PM EDT us Mabel Alfred MD LAB BLOOD ORDERABLES Final Result [facility] [address] [place] [phone] documented in this encounter Visit Diagnoses Diagnosis Other specified hypothyroidism- Primary documented in this encounter Additional Health Concerns Assessment Noted Time PHQ-9 Depression Total Score: 7 06/01/19 25 11:07 AM EDT documented as of this encounter Care Teams Barometers Calibrator Relationship Specialty Start Date End Date Mabel Alfred MD [address] [place] [phone] PCP - General Internal Medicine 12/01/20 documented as of this encounter
--- OUTSIDE RECORDS SUMMARY | 2024-11-19 17:19 | XMS_ITS | Encounter Summary ---
Author Organization [employer] Address [address] [place] [id number] Care Team Providers Care Organ Installer Name Role Phone Mabel Alfred MD Primary Care Provider [phone]- [phone] Reason for Visit * Reason Onset Date Comments Chart Prep 11/16/2024 Encounter Details Date Type Department Care Team ([facility] Contact Info) Description 11/16/2024 Telephone [facility] MED & PEDS [address] [place], [place] [phone] Mabel Alfred MD [address] [place] [address] Chart Prep Social History Tobacco Use Types Packs/Day Years [...] encounter Miscellaneous Notes * Telephone Encounter - Leesa Gay [place] - 11/16/2024 1:13 PM EDT Chart Prep Labs: not done Images: done Referrals: complete Vaccines due: due Screenings: mammogram, pap smear, and STI screening Overdue care gaps: Not applicable documented in this encounter Plan of Treatment Not on file documented as of this encounter Visit Diagnoses Not on filedocumented in this encounter Additional Health Concerns Assessment Noted Time PHQ-9 Depression Total Score: 7 06/01/19 25 11:07 AM EDT documented as of this encounter Care Teams Organ Installer Relationship Specialty Start Date End Date Mabel Alfred MD [address] [place] [address] PCP - General Internal Medicine 12/01/20 documented as of this encounter
--- OUTSIDE RECORDS SUMMARY | 2024-11-19 17:19 | XMS_ITS | Encounter Summary ---
Author Organization [employer] Address [address] [place] [address] Care Team Providers Care Farrowing Worker Name Role Phone Mabel Alfred MD Primary Care Provider [phone]- [phone] Reason for Visit * Reason Onset Date Comments Referral 02/03/2023 Encounter Details Date Type Department Care Team ([facility] Contact Info) Description 02/03/2023 Telephone [facility] CHC MED & PEDS [address] [place], [place] [phone] Mabel Alfred MD [address] [place] [address] Referral Social History Tobacco Use Types Packs/Day Years [...] encounter Miscellaneous Notes * Telephone Encounter - Judit Jona - 02/03/2023 12:41 PM EST Tc from pt requesting referral for physical therapy. Was told by office will need a new one. Location: [address] [place] [address], [facility] Date: n/a Time: n/a Specialty: physical therapy documented in this encounter Plan of Treatment Not on file documented as of this encounter Visit Diagnoses Not on filedocumented in this encounter Care Teams Farrowing Worker Relationship Specialty Start Date End Date Mabel Alfred MD [address] [place] [id number] PCP - General Internal Medicine 12/01/20 documented as of this encounter
--- OUTSIDE RECORDS SUMMARY | 2024-11-19 17:19 | XMS_ITS | Encounter Summary ---
Author Organization [employer] Address [address] [facility] [address], [place] [address] Care Team Providers Care Director Of Casework Services Name Role Phone Mabel Alfred MD Primary Care Provider [phone]- [phone] Reason for Referral * Consultation (Routine) - Closed Specialty Diagnoses / Procedures Referred By Contac t Referred To Contact Neurology Diagnoses Brain concussion, without loss of consciousness, subsequent encounter Post-traumatic headache, not intractable, unspecified chronicity pattern Mabel Alfred MD [address] [place] [address] Phone: tel: fax: [facility] Neurology [address] [place] [address] Phone: tel: fax: Referral ID Status Reason Start Date Expiration Date V isits Requested Visits Authorized [id number] Closed Specialty Services Required 08/03/2024 08/03/2025 1 1 Encounter Details Date Type Department Care Team (Late st Contact Info) Description 08/03/2024 Orders Only [facility] CH[facility] MED & PEDS [address] [place] [address] Mabel Alfred MD [address] [place] [address] Brain concussion, without loss of consciousness, subsequent encounter (Primary Dx); Post-traumatic headache, not intractable, unspecified chronicity pattern Social History Tobacco Use Types Packs/Day Years [...] concussion, without loss of consciousness, subsequent encounter Post-traumatic headache, not intractable, unspecified chronicity pattern Expected: 08/03/2024 (Approximate), Expires: 08/03/2025 documented as of this encounter Visit Diagnoses Diagnosis Brain concussion, without loss of consciousness, subsequent encounter- Primary Post-traumatic headache, not intractable, unspecified chronicity pattern documented in this encounter Additional Health Concerns Assessment Noted Time PHQ-9 Depression Total Score: 7 06/01/19 25 11:07 AM EDT documented as of this encounter Care Teams Director Of Casework Services Relationship Specialty Start Date End Date Mabel Alfred MD [address] [place] [address] PCP - General Internal Medicine 12/01/20 documented as of this encounter
[2024-11-21 10:53] LABS: Anti Nuclear Antibody Screen NEGATIVE (NEGATIVE)
== END 2024-11-19 12:38 | disposition home or self-care (01) ==
LOC: HO.CHCLDS 12:37
PROVIDERS: Visit Provider Internal Medicine
DX: R79.89 Other specified abnormal findings of blood chemistry (principal); R60.0 Localized edema; D50.9 Iron deficiency anemia, unspecified; E03.8 Other specified hypothyroidism
CPT/HCPCS: 36415; 80053; 80061; 82728; 84439; 84443; 85025; 85652; 86038; 86140